=== PATIENT | male | born 1955 | race Caucasian/White ===

== ENCOUNTER 2024-09-09 13:56 | Emergency (ER) | payer MEDICARE, MEDICAID ==
[~2024-09-09] VITALS: Ht 193 cm; Wt 79.5 kg
[~2024-09-09 13:56] MED LIST: BUPR100T4 PO; HALO10TA20 PO; TRIH5TAB4 PO
[2024-09-09 14:15] VITALS: BP 131/73; PULSE 65; RESP 18; TEMP 97.8; O2SAT 96
[2024-09-09] MEDS ORDERED: PERM60CR4 TP (15:36)
[2024-09-09] MEDS ORDERED: TRIA15CR49 TP (15:36)
== END 2024-09-09 15:53 | disposition home or self-care (01) ==
LOC: EMS 13:56
DX: L30.9 Dermatitis, unspecified (principal); F20.9 Schizophrenia, unspecified; Z79.899 Other long term (current) drug therapy; Z98.890 Other specified postprocedural states
CPT/HCPCS: 99283; Z7502

== ENCOUNTER 2024-12-13 10:34 | Emergency (ER) | payer MEDICARE, MEDICAID ==
[~2024-12-13] VITALS: Ht 180.3 cm; Wt 70.5 kg
[~2024-12-13 10:34] MED LIST changes: +PERM60CR4 TP; +TRIA15CR49 TP
[2024-12-13 10:45] VITALS: BP 128/84; PULSE 84; RESP 18; TEMP 98; O2SAT 98
[2024-12-13] MEDS ORDERED: AMLO5TAB66 PO (10:46)
[2024-12-13] MEDS ORDERED: APIX5TAB PO (10:46)
[2024-12-13] MEDS ORDERED: LISI1TAB53 PO (10:46)
[2024-12-13 10:57] LABS: COVID AG,FIA SOURCE NASAL SWAB
[2024-12-13] MEDS: AZITHROMYCIN 500 MG TABLET PO ONE (11:31)
[2024-12-13] MEDS: ACETAMINOPHEN 500 MG TABLET PO ONE (11:32)
[2024-12-13 11:33] LABS: INFLUENZA TYPE A NEGATIVE FOR TYPE A (NEGATIVE); INFLUENZA TYPE B NEGATIVE FOR TYPE B (NEGATIVE); SARS-COV2 (COVID) ANTIGEN,FIA Negative (Negative)
[2024-12-13] MEDS ORDERED: AZIT-164 PO (12:00)
== END 2024-12-13 12:33 | disposition home or self-care (01) ==
LOC: EMS 10:48
DX: J40 Bronchitis, not specified as acute or chronic (principal); Z20.822 Contact with and (suspected) exposure to COVID-19; F20.9 Schizophrenia, unspecified; Z79.01 Long term (current) use of anticoagulants; Z98.890 Other specified postprocedural states; Z79.899 Other long term (current) drug therapy
CPT/HCPCS: 99284; 71045; 87426; 87804; J0456